=== PATIENT | male | born 1955 | race Caucasian/White ===

== ENCOUNTER 2019-06-08 17:14 | Inpatient (IN) | payer OTHER ==
[~2019-06-08 17:14] MED LIST: ETOMIDATE 20 MG INJ; SUCCINYLCHOLINE CHLORIDE 100 MG/5 ML SYG IV
[2019-06-08 17:35] LABS: ADD MAN DIFF? NO
[2019-06-08] MEDS: NALOXONE 2 MG SYG IV (17:37)
[2019-06-08] MEDS: ETOMIDATE 20 MG INJ IV (17:37)
[2019-06-08] MEDS: SUCCINYLCHOLINE CHLORIDE 100 MG/5 ML SYG IV (17:37)
[2019-06-08 17:39] LABS: BASOPHILS % 0.5 % (0.0-2.0); EOSINOPHILS # 0.2 10^3/ul (0.0-0.5); EOSINOPHILS % 2.8 % (0.0-7.0); HEMATOCRIT 45.3 % (42.0-52.0); HEMOGLOBIN 13.9 g/dl (14.0-18.0); LYMPHOCYTES # 1.6 10^3/ul (0.8-2.9); LYMPHOCYTES % 26.9 % (15.0-51.0); MEAN CORPUSCULAR HEMOGLOBIN 25.1 pg (29.0-33.0); MEAN CORPUSCULAR HGB CONC 30.7 g/dl (32.0-37.0); MEAN CORPUSCULAR VOLUME 81.9 fl (82.0-101.0); MEAN PLATELET VOLUME 10.2 fl (7.4-10.4); MONOCYTE # 0.5 10^3/ul (0.3-0.9); MONOCYTES % 7.8 % (0.0-11.0); NEUTROPHIL # 3.7 10^3/ul (1.6-7.5); NEUTROPHILS % 61.7 % (39.0-77.0); PLATELET COUNT 168 10^3/UL (140-415); RED BLOOD COUNT 5.53 10^6/ul (4.70-6.10); RED CELL DISTRIBUTION WIDTH 16.4 % (11.5-14.5)
[2019-06-08 17:39] LABS: WHITE BLOOD COUNT 6.1 10^3/ul (4.8-10.8)
[2019-06-08] MEDS: LABETALOL HCL 20MG INJ IV (17:44)
[2019-06-08] MEDS: niCARdipine-NS 0.1MG/ML DRIP 200 ML IV (17:47)
[2019-06-08 17:53] LABS: HEMOGLOBIN A1C 5.4 % (0-5.9)
[2019-06-08 17:58] LABS: INR 0.93; PROTIME 12.6 Sec (11.9-14.9)
[2019-06-08 18:00] LABS: ACETAMINOPHEN < 10.0 ug/ml (10.0-30.0)
[2019-06-08 18:00] LABS: SALICYLATE < 1.0 mg/dl (5.0-30.0)
[2019-06-08 18:01] LABS: ALANINE AMINOTRANSFERASE 30 IU/L (13-69); ALBUMIN 4.3 g/dl (3.3-4.9); ALBUMIN/GLOBULIN RATIO 1.02; ALKALINE PHOSPHATASE 94 IU/L (42-121); ANION GAP 10 (5-13); ASPARTATE AMINO TRANSFERASE 42 IU/L (15-46); BILIRUBIN,INDIRECT 0.7 mg/dl (0-1.1); BILIRUBIN,TOTAL 0.7 mg/dl (0.2-1.3); BLOOD UREA NITROGEN 15 mg/dl (7-20); CALCIUM 9.6 mg/dl (8.4-10.2); CARBON DIOXIDE 26 mmol/L (21-31); CHLORIDE 105 mmol/L (97-110); CHOL/HDL RATIO 3.1 RATIO; CHOLESTEROL 146 mg/dl (100-200); CREATINE KINASE 372 IU/L (23-200); CREATININE 0.98 mg/dl (0.61-1.24); Estimated GFR > 60 mL/min (>60); GLUCOSE 159 mg/dl (70-220); HDL CHOLESTEROL 46 mg/dl (30-78); LDL CHOLESTEROL,CALCULATED 72 mg/dl; PARTIAL THROMBOPLASTIN TIME 25.2 Sec (23.0-35.0); POTASSIUM 3.4 mmol/L (3.5-5.1); SODIUM 141 mmol/L (135-144); TOTAL PROTEIN 8.5 g/dl (6.1-8.1); TRIGLYCERIDES 139 mg/dl (0-149)
[2019-06-08 18:03] LABS: ETHANOL < 10.0 mg/dl (0-0)
[2019-06-08 18:04] LABS: ADD UMIC YES; UR ASCORBIC ACID NEGATIVE (NEGATIVE); UR BILIRUBIN (Dip) NEGATIVE (NEGATIVE); UR BLOOD (Dip) 1+ mg/dL (NEGATIVE); UR CLARITY CLEAR (CLEAR); UR COLOR YELLOW (YELLOW); UR GLUCOSE (Dip) NEGATIVE (NEGATIVE); UR KETONES (Dip) NEGATIVE (NEGATIVE); UR LEUKOCYTE ESTERASE (Dip) NEGATIVE Leu/ul (NEGATIVE); UR MUCUS FEW /HPF (NONE SEEN); UR NITRITE (Dip) NEGATIVE (NEGATIVE); UR RBC 18 /HPF (0-5); UR TOTAL PROTEIN (Dip) 2+ mg/dl (NEGATIVE); UR UROBILINOGEN (Dip) NEGATIVE (NEGATIVE); UR WBC 1 /HPF (0-5)
[2019-06-08 18:11] LABS: CK INDEX 2.8; TROPONIN-I 0.039 ng/ml (0.000-0.120)
[2019-06-08 18:21] LABS: AMPHETAMINE/METHAMPHETAMINE Negative (NEGATIVE); BARBITURATES Negative (NEGATIVE); BENZODIAZEPINES Negative (NEGATIVE); CANNABINOIDS Negative (NEGATIVE); COCAINE Negative (NEGATIVE); OPIATES Negative (NEGATIVE)
[2019-06-08] MEDS: IOHEXOL 100 ML (18:29)
[2019-06-08] MEDS: SOD CHLORIDE 0.9% 100 ML (18:29)
[2019-06-08] MEDS ORDERED: GELATIN SIZE 100 SPONGE (18:50)
[2019-06-08] MEDS ORDERED: THROMBIN 5000 UNIT (RECOTHROM) VIAL (18:50)
[2019-06-08] MEDS ORDERED: LIDOCAINE 1%/EPI 30 ML INJ (18:51)
[2019-06-08] MEDS ORDERED: BACITRACIN/POLYMYXIN 28.35 GM OINT TOP (18:51)
[2019-06-08] MEDS ORDERED: EPHEDrine 25 MG/5 ML SYG (19:00)
[2019-06-08] MEDS: SOD CHLORIDE 0.9% 1,000 ML IV (19:13)
[2019-06-08 19:47] LABS: COLLAGEN/EPI 138 Secs. (51-198)
[2019-06-08] MEDS ORDERED: ROCURONIUM 50 MG INJ (19:50)
[2019-06-08] MEDS: GELATIN SIZE 100 SPONGE TOP (20:14)
[2019-06-08] MEDS: BACITRACIN 50000 UNITS INJ IRR (20:14)
[2019-06-08] MEDS: LIDOCAINE 1%/EPI (1:100,000) (MDV) 20 ML INJ (20:14)
[2019-06-08] MEDS: THROMBIN 5000 UNIT (RECOTHROM) VIAL (20:14)
[2019-06-08] MEDS ORDERED: HYDROGEN PEROXIDE 118 ML (21:41)
[2019-06-08] MEDS ORDERED: ALBUTEROL HFA 8 GM INHALER INH (23:00)
[2019-06-08] MEDS ORDERED: IPRATROPIUM (HFA) 12.9 GM INHALER INH (23:00)
[2019-06-08] MEDS ORDERED: PROPOFOL 100 ML IV (23:00)
[2019-06-08] MEDS ORDERED: LABETALOL HCL 20MG INJ (23:48)
[2019-06-08] MEDS ORDERED: FENTAnyl 50 MCG/ML VIAL (23:48)
[2019-06-08] MEDS ORDERED: CEFAZOLIN 1 GM INJ (23:49)
[2019-06-09] MEDS ORDERED: hydrALAzine 20 MG INJ IV (00:30)
[2019-06-09] MEDS ORDERED: morphine 10 MG INJ IV (00:30)
[2019-06-09] MEDS ORDERED: LABETALOL HCL 20MG INJ IV (00:30)
[2019-06-09] MEDS ORDERED: DIPHENHYDRAMINE 50 MG INJ IV ×2 (00:30)
[2019-06-09] MEDS ORDERED: EPHEDrine 25 MG/5 ML SYG IV (00:30)
[2019-06-09] MEDS ORDERED: MEPERIDINE 25 MG INJ IV (00:30)
[2019-06-09] MEDS ORDERED: morphine 2 MG INJ IV ×2 (00:30)
[2019-06-09] MEDS ORDERED: MIDAZOLAM 1 MG/ML 2 ML INJ IV (00:30)
[2019-06-09] MEDS: niCARdipine-NS 0.1MG/ML DRIP 200 ML IV ×9 (00:37→23:25)
[2019-06-09] MEDS: CEFAZOLIN 2 GM/50 ML (PMX) 50 ML IVPB ×3 (01:48→16:23)
[2019-06-09 02:29] LABS: AADO2 Arterial 139.3 mmHg (7.0-24.0); Arterial Base Excess -0.2 mmol/L (-3.0-3); Arterial Blood Gas Oxygen Sat 99.1 mmHG (95.0-98.0); Arterial COHb 0.6 % (0.0-3.0); Arterial Fraction of Oxyhgb 98.3 % (93.0-99.0); Arterial MetHb 0.2 % (0.0-1.5); Arterial pCO2 43.3 mmhg (35-45); MODE VENT - AC; Site A-Line
[2019-06-09 05:08] LABS: ADD MAN DIFF? NO
[2019-06-09] MEDS: ONDANSETRON 4 MG INJ IV (05:15)
[2019-06-09 05:25] LABS: BASOPHILS % 0.2 % (0.0-2.0); HEMATOCRIT 39.9 % (42.0-52.0); HEMOGLOBIN 12.2 g/dl (14.0-18.0); LYMPHOCYTES # 0.9 10^3/ul (0.8-2.9); LYMPHOCYTES % 8.9 % (15.0-51.0); MEAN CORPUSCULAR HEMOGLOBIN 25.4 pg (29.0-33.0); MEAN CORPUSCULAR HGB CONC 30.6 g/dl (32.0-37.0); MEAN CORPUSCULAR VOLUME 83.1 fl (82.0-101.0); MEAN PLATELET VOLUME 10.5 fl (7.4-10.4); MONOCYTE # 0.6 10^3/ul (0.3-0.9); MONOCYTES % 6.2 % (0.0-11.0); NEUTROPHIL # 8.1 10^3/ul (1.6-7.5); NEUTROPHILS % 84.4 % (39.0-77.0); PLATELET COUNT 159 10^3/UL (140-415); RED CELL DISTRIBUTION WIDTH 16.8 % (11.5-14.5)
[2019-06-09 05:25] LABS: WHITE BLOOD COUNT 9.6 10^3/ul (4.8-10.8)
[2019-06-09 05:43] LABS: PHOSPHORUS 4.2 mg/dl (2.5-4.9)
[2019-06-09 05:50] LABS: MAGNESIUM 1.8 mg/dl (1.7-2.5)
[2019-06-09 06:01] LABS: ANION GAP 10 (5-13); BLOOD UREA NITROGEN 16 mg/dl (7-20); CALCIUM 8.9 mg/dl (8.4-10.2); CARBON DIOXIDE 28 mmol/L (21-31); CHLORIDE 104 mmol/L (97-110); CREATININE 1.01 mg/dl (0.61-1.24); Estimated GFR > 60 mL/min (>60); GLUCOSE 184 mg/dl (70-220); POTASSIUM 3.6 mmol/L (3.5-5.1); SODIUM 142 mmol/L (135-144)
[2019-06-09] MEDS: PANTOPRAZOLE 40 MG INJ IV (06:22)
[2019-06-09 09:13] LABS: AADO2 Arterial 95.2 mmHg (7.0-24.0); Arterial Base Excess 1.3 mmol/L (-3.0-3); Arterial HCO3 25.2 mmol/L (22.0-26.0); MODE VENT - AC; Site A-Line
[2019-06-09] MEDS: LEVETIRACETAM 500 MG (PMX) 100 ML IVPB ×2 (13:25→20:50)
[2019-06-09] MEDS: morphine 2 MG INJ IV (13:26)
[2019-06-09] MEDS: SOD CHLORIDE 0.9% 1,000 ML IV (16:23)
[2019-06-09] MEDS ORDERED: LEVETIRACETAM IV 500 MG in DEXTROSE 5% 100 ML IVPB (21:00)
[2019-06-10] MEDS: niCARdipine-NS 0.1MG/ML DRIP 200 ML IV (01:36)
[2019-06-10] MEDS: niCARdipine 50 MG in SOD CHLORIDE 0.9% 480 ML IV ×4 (03:47→23:08)
[2019-06-10] MEDS: ACETAMINOPHEN 650 MG SUPP PR ×2 (04:20→20:34)
[2019-06-10 05:21] LABS: ADD MAN DIFF? NO
[2019-06-10 05:25] LABS: WHITE BLOOD COUNT 9.8 10^3/ul (4.8-10.8)
[2019-06-10 05:25] LABS: BASOPHILS % 0.1 % (0.0-2.0); HEMATOCRIT 33.7 % (42.0-52.0); HEMOGLOBIN 10.4 g/dl (14.0-18.0); LYMPHOCYTES # 0.8 10^3/ul (0.8-2.9); LYMPHOCYTES % 8.3 % (15.0-51.0); MEAN CORPUSCULAR HEMOGLOBIN 25.3 pg (29.0-33.0); MEAN CORPUSCULAR HGB CONC 30.9 g/dl (32.0-37.0); MEAN PLATELET VOLUME 10.3 fl (7.4-10.4); MONOCYTE # 0.8 10^3/ul (0.3-0.9); MONOCYTES % 7.8 % (0.0-11.0); NEUTROPHIL # 8.2 10^3/ul (1.6-7.5); NEUTROPHILS % 83.3 % (39.0-77.0); PLATELET COUNT 141 10^3/UL (140-415); RED BLOOD COUNT 4.11 10^6/ul (4.70-6.10); RED CELL DISTRIBUTION WIDTH 16.3 % (11.5-14.5)
[2019-06-10] MEDS: PANTOPRAZOLE 40 MG INJ IV (05:31)
[2019-06-10] MEDS: SOD CHLORIDE 0.9% 1,000 ML IV ×2 (05:31→19:10)
[2019-06-10 05:52] LABS: ANION GAP 8 (5-13); BLOOD UREA NITROGEN 21 mg/dl (7-20); CALCIUM 8.2 mg/dl (8.4-10.2); CARBON DIOXIDE 25 mmol/L (21-31); CHLORIDE 105 mmol/L (97-110); CREATININE 1.01 mg/dl (0.61-1.24); Estimated GFR > 60 mL/min (>60); GLUCOSE 121 mg/dl (70-220); MAGNESIUM 1.7 mg/dl (1.7-2.5); POTASSIUM 3.1 mmol/L (3.5-5.1); SODIUM 138 mmol/L (135-144)
[2019-06-10] MEDS: LEVETIRACETAM 500 MG (PMX) 100 ML IVPB ×2 (08:12→20:34)
[2019-06-10] MEDS: CEFAZOLIN 2 GM/50 ML (PMX) 50 ML IVPB ×4 (08:24→23:36)
[2019-06-10] MEDS: POTASSIUM CHLORIDE 100 ML IVPB ×2 (14:16→16:27)
[2019-06-11] MEDS: SOD CHLORIDE 0.9% 1,000 ML IV (02:11)
[2019-06-11] MEDS: niCARdipine 50 MG in SOD CHLORIDE 0.9% 480 ML IV ×4 (03:58→21:42)
[2019-06-11] MEDS: PANTOPRAZOLE 40 MG INJ IV (05:08)
[2019-06-11 05:21] LABS: ADD MAN DIFF? NO
[2019-06-11 05:24] LABS: WHITE BLOOD COUNT 8.3 10^3/ul (4.8-10.8)
[2019-06-11 05:24] LABS: BASOPHILS % 0.1 % (0.0-2.0); HEMATOCRIT 31.1 % (42.0-52.0); HEMOGLOBIN 9.5 g/dl (14.0-18.0); LYMPHOCYTES # 0.7 10^3/ul (0.8-2.9); LYMPHOCYTES % 8.4 % (15.0-51.0); MEAN CORPUSCULAR HEMOGLOBIN 25.2 pg (29.0-33.0); MEAN CORPUSCULAR HGB CONC 30.5 g/dl (32.0-37.0); MEAN CORPUSCULAR VOLUME 82.5 fl (82.0-101.0); MEAN PLATELET VOLUME 10.8 fl (7.4-10.4); MONOCYTE # 0.6 10^3/ul (0.3-0.9); MONOCYTES % 7.6 % (0.0-11.0); NEUTROPHILS % 83.5 % (39.0-77.0); PLATELET COUNT 140 10^3/UL (140-415); RED BLOOD COUNT 3.77 10^6/ul (4.70-6.10); RED CELL DISTRIBUTION WIDTH 16.4 % (11.5-14.5)
[2019-06-11 05:51] LABS: ANION GAP 7 (5-13); BLOOD UREA NITROGEN 18 mg/dl (7-20); CARBON DIOXIDE 22 mmol/L (21-31); CHLORIDE 111 mmol/L (97-110); CREATININE 0.79 mg/dl (0.61-1.24); Estimated GFR > 60 mL/min (>60); GLUCOSE 123 mg/dl (70-220); MAGNESIUM 1.9 mg/dl (1.7-2.5); POTASSIUM 3.4 mmol/L (3.5-5.1); SODIUM 140 mmol/L (135-144)
[2019-06-11] MEDS: POTASSIUM CHLORIDE 100 ML IVPB (06:36)
[2019-06-11] MEDS: CEFAZOLIN 2 GM/50 ML (PMX) 50 ML IVPB ×2 (08:49→15:51)
[2019-06-11] MEDS: LEVETIRACETAM 500 MG (PMX) 100 ML IVPB ×2 (08:49→20:29)
[2019-06-11] MEDS ORDERED: niCARdipine-NS 0.1MG/ML DRIP 200 ML (10:08)
[2019-06-11] MEDS ORDERED: LORAZEPAM 2 MG INJ (22:52)
[2019-06-11] MEDS: LORAZEPAM 2 MG INJ IV (22:55)
[2019-06-11] MEDS: LEVETIRACETAM 1000 MG (PMX) 100 ML IVPB (23:13)
[2019-06-12] MEDS: CEFAZOLIN 2 GM/50 ML (PMX) 50 ML IVPB (00:22)
[2019-06-12] MEDS: niCARdipine 50 MG in SOD CHLORIDE 0.9% 480 ML IV ×4 (02:34→18:59)
[2019-06-12] MEDS: ACETAMINOPHEN 650MG/20.3ML CUP NGT (05:02)
[2019-06-12 05:18] LABS: ADD MAN DIFF? NO
[2019-06-12 05:20] LABS: BASOPHILS % 0.2 % (0.0-2.0); HEMATOCRIT 33.1 % (42.0-52.0); HEMOGLOBIN 10.2 g/dl (14.0-18.0); LYMPHOCYTES # 0.7 10^3/ul (0.8-2.9); LYMPHOCYTES % 10.7 % (15.0-51.0); MEAN CORPUSCULAR HEMOGLOBIN 25.9 pg (29.0-33.0); MEAN CORPUSCULAR HGB CONC 30.8 g/dl (32.0-37.0); MEAN PLATELET VOLUME 10.1 fl (7.4-10.4); MONOCYTE # 0.5 10^3/ul (0.3-0.9); NEUTROPHIL # 5.3 10^3/ul (1.6-7.5); NEUTROPHILS % 80.8 % (39.0-77.0); PLATELET COUNT 163 10^3/UL (140-415); RED BLOOD COUNT 3.94 10^6/ul (4.70-6.10); RED CELL DISTRIBUTION WIDTH 16.5 % (11.5-14.5)
[2019-06-12 05:20] LABS: WHITE BLOOD COUNT 6.6 10^3/ul (4.8-10.8)
[2019-06-12] MEDS: LANSOPRAZOLE 30 MG CAP PO (05:22)
[2019-06-12] MEDS ORDERED: VANCOMYCIN IV PER PHARMACY XX (05:30)
[2019-06-12 05:49] LABS: ANION GAP 4 (5-13); BLOOD UREA NITROGEN 19 mg/dl (7-20); CALCIUM 8.4 mg/dl (8.4-10.2); CARBON DIOXIDE 26 mmol/L (21-31); CHLORIDE 114 mmol/L (97-110); CREATININE 0.82 mg/dl (0.61-1.24); Estimated GFR > 60 mL/min (>60); GLUCOSE 129 mg/dl (70-220); MAGNESIUM 2.1 mg/dl (1.7-2.5); PHOSPHORUS 2.3 mg/dl (2.5-4.9); POTASSIUM 3.6 mmol/L (3.5-5.1); SODIUM 144 mmol/L (135-144)
[2019-06-12] MEDS: PIPER-TAZO 3.375 GM IV (PMX) 100 ML IVPB ×4 (06:24→23:31)
[2019-06-12] MEDS: VANCOMYCIN 1.5 GM/NS 250 ML 250 ML IVPB (06:51)
[2019-06-12 07:26] LABS: AADO2 Arterial 126.3 mmHg (7.0-24.0); Allen Test ACCEPTAB; Arterial Base Excess -0.9 mmol/L (-3.0-3); Arterial COHb 0.1 % (0.0-3.0); Arterial Fraction of Oxyhgb 94.7 % (93.0-99.0); Arterial MetHb 0.2 % (0.0-1.5); Arterial pCO2 40.3 mmhg (35-45); MODE VENT - AC; Site Left Radial
[2019-06-12] MEDS: LEVETIRACETAM 1000 MG (PMX) 100 ML IVPB ×2 (08:43→20:45)
[2019-06-12] MEDS: POTASSIUM PHOSPHATE 15 MM in SOD CHLORIDE 0.9% 250 ML IVPB (11:48)
[2019-06-12] MEDS: METOPROLOL 25 MG TAB PO ×2 (11:49→21:22)
[2019-06-12] MEDS: VANCOMYCIN 1 GM 250 ML IVPB (18:43)
[2019-06-12] MEDS: LORAZEPAM 2 MG INJ IV ×2 (18:47→21:22)
[2019-06-13 05:00] LABS: ADD MAN DIFF? NO
[2019-06-13 05:02] LABS: BASOPHILS % 0.4 % (0.0-2.0); EOSINOPHILS # 0.1 10^3/ul (0.0-0.5); EOSINOPHILS % 0.7 % (0.0-7.0); HEMOGLOBIN 10.3 g/dl (14.0-18.0); LYMPHOCYTES # 0.7 10^3/ul (0.8-2.9); LYMPHOCYTES % 9.3 % (15.0-51.0); MEAN CORPUSCULAR HEMOGLOBIN 25.2 pg (29.0-33.0); MEAN CORPUSCULAR HGB CONC 30.3 g/dl (32.0-37.0); MEAN CORPUSCULAR VOLUME 83.3 fl (82.0-101.0); MEAN PLATELET VOLUME 10.5 fl (7.4-10.4); MONOCYTE # 0.5 10^3/ul (0.3-0.9); NEUTROPHIL # 5.7 10^3/ul (1.6-7.5); NEUTROPHILS % 82.3 % (39.0-77.0); PLATELET COUNT 189 10^3/UL (140-415); RED BLOOD COUNT 4.08 10^6/ul (4.70-6.10); RED CELL DISTRIBUTION WIDTH 16.4 % (11.5-14.5)
[2019-06-13] MEDS: PIPER-TAZO 3.375 GM IV (PMX) 100 ML IVPB ×3 (05:05→17:21)
[2019-06-13 05:25] LABS: ALANINE AMINOTRANSFERASE 33 IU/L (13-69); ALBUMIN/GLOBULIN RATIO 0.88; ALKALINE PHOSPHATASE 80 IU/L (42-121); ANION GAP 5 (5-13); ASPARTATE AMINO TRANSFERASE 42 IU/L (15-46); BILIRUBIN,INDIRECT 0.5 mg/dl (0-1.1); BILIRUBIN,TOTAL 0.5 mg/dl (0.2-1.3); BLOOD UREA NITROGEN 18 mg/dl (7-20); CALCIUM 8.7 mg/dl (8.4-10.2); CARBON DIOXIDE 28 mmol/L (21-31); CHLORIDE 112 mmol/L (97-110); CREATININE 0.81 mg/dl (0.61-1.24); Estimated GFR > 60 mL/min (>60); GLUCOSE 121 mg/dl (70-220); PHOSPHORUS 2.8 mg/dl (2.5-4.9); POTASSIUM 3.4 mmol/L (3.5-5.1); SODIUM 145 mmol/L (135-144); TOTAL PROTEIN 6.4 g/dl (6.1-8.1)
[2019-06-13] MEDS: LANSOPRAZOLE 30 MG CAP PO (05:54)
[2019-06-13] MEDS: POTASSIUM CHLORIDE 20 MEQ POWDER FOR ORAL SOLN GTB (05:54)
[2019-06-13] MEDS: VANCOMYCIN 1 GM 250 ML IVPB ×2 (05:54→18:33)
[2019-06-13] MEDS: niCARdipine 50 MG in SOD CHLORIDE 0.9% 480 ML IV ×3 (06:25→20:28)
[2019-06-13] MEDS: LEVETIRACETAM 1000 MG (PMX) 100 ML IVPB ×2 (08:31→20:35)
[2019-06-13] MEDS: METOPROLOL 25 MG TAB PO (08:32)
[2019-06-13 16:45] LABS: ANION GAP 4 (5-13); BLOOD UREA NITROGEN 18 mg/dl (7-20); CALCIUM 8.8 mg/dl (8.4-10.2); CARBON DIOXIDE 28 mmol/L (21-31); CHLORIDE 109 mmol/L (97-110); CREATININE 0.83 mg/dl (0.61-1.24); Estimated GFR > 60 mL/min (>60); GLUCOSE 133 mg/dl (70-220); POTASSIUM 3.4 mmol/L (3.5-5.1); SODIUM 141 mmol/L (135-144)
[2019-06-13] MEDS: POTASSIUM CHLORIDE 100 ML IVPB ×2 (17:09→19:20)
[2019-06-13 17:49] LABS: VANCOMYCIN,TROUGH 10.2 ug/ml (10.0-20.0)
[2019-06-13] MEDS: METOPROLOL 50 MG TAB PO (20:35)
[2019-06-13] MEDS ORDERED: METOPROLOL 100 MG TAB NGT (21:00)
[2019-06-14] MEDS: PIPER-TAZO 3.375 GM IV (PMX) 100 ML IVPB ×4 (00:43→15:35)
[2019-06-14] MEDS: niCARdipine 50 MG in SOD CHLORIDE 0.9% 480 ML IV ×5 (00:59→18:22)
[2019-06-14] MEDS: hydrALAzine 20 MG INJ IV (01:32)
[2019-06-14] MEDS: ACETAMINOPHEN 650MG/20.3ML CUP NGT ×2 (04:11→15:38)
[2019-06-14 04:51] LABS: ADD MAN DIFF? NO
[2019-06-14 04:55] LABS: WHITE BLOOD COUNT 7.8 10^3/ul (4.8-10.8)
[2019-06-14 04:55] LABS: BASOPHILS % 0.4 % (0.0-2.0); EOSINOPHILS # 0.1 10^3/ul (0.0-0.5); EOSINOPHILS % 1.2 % (0.0-7.0); HEMATOCRIT 33.9 % (42.0-52.0); HEMOGLOBIN 10.4 g/dl (14.0-18.0); LYMPHOCYTES # 0.6 10^3/ul (0.8-2.9); LYMPHOCYTES % 7.7 % (15.0-51.0); MEAN CORPUSCULAR HEMOGLOBIN 25.4 pg (29.0-33.0); MEAN CORPUSCULAR HGB CONC 30.7 g/dl (32.0-37.0); MEAN CORPUSCULAR VOLUME 82.7 fl (82.0-101.0); MEAN PLATELET VOLUME 9.8 fl (7.4-10.4); MONOCYTE # 0.5 10^3/ul (0.3-0.9); MONOCYTES % 6.6 % (0.0-11.0); NEUTROPHIL # 6.5 10^3/ul (1.6-7.5); NEUTROPHILS % 83.8 % (39.0-77.0); PLATELET COUNT 216 10^3/UL (140-415); RED CELL DISTRIBUTION WIDTH 16.4 % (11.5-14.5)
[2019-06-14 05:14] LABS: ANION GAP 6 (5-13); BLOOD UREA NITROGEN 19 mg/dl (7-20); CALCIUM 8.7 mg/dl (8.4-10.2); CARBON DIOXIDE 27 mmol/L (21-31); CHLORIDE 111 mmol/L (97-110); CREATININE 0.82 mg/dl (0.61-1.24); Estimated GFR > 60 mL/min (>60); GLUCOSE 154 mg/dl (70-220); POTASSIUM 3.8 mmol/L (3.5-5.1); SODIUM 144 mmol/L (135-144)
[2019-06-14] MEDS: VANCOMYCIN 1.25 GM/NS 250 ML 250 ML IVPB ×2 (05:15→18:07)
[2019-06-14] MEDS: LANSOPRAZOLE 30 MG CAP PO (05:15)
[2019-06-14] MEDS: LEVETIRACETAM 1000 MG (PMX) 100 ML IVPB ×2 (08:19→21:03)
[2019-06-14] MEDS: METOPROLOL 50 MG TAB PO ×2 (08:20→21:03)
[2019-06-14 09:52] LABS: B-TYPE NATRIURETIC PEPTIDE 814 PG/ML (0-125)
[2019-06-15] MEDS: PIPER-TAZO 3.375 GM IV (PMX) 100 ML IVPB ×5 (00:23→23:20)
[2019-06-15] MEDS: niCARdipine 50 MG in SOD CHLORIDE 0.9% 480 ML IV ×6 (01:55→19:59)
[2019-06-15] MEDS: LANSOPRAZOLE 30 MG CAP PO (05:19)
[2019-06-15] MEDS: hydrALAzine 20 MG INJ IV ×2 (05:19→12:44)
[2019-06-15 05:28] LABS: ADD MAN DIFF? NO
[2019-06-15 05:33] LABS: WHITE BLOOD COUNT 7.5 10^3/ul (4.8-10.8)
[2019-06-15 05:33] LABS: ABNORMAL IP MESSAGE 1; BASOPHILS % 0.1 % (0.0-2.0); EOSINOPHILS % 0.4 % (0.0-7.0); HEMATOCRIT 37.1 % (42.0-52.0); HEMOGLOBIN 11.3 g/dl (14.0-18.0); LYMPHOCYTES # 0.6 10^3/ul (0.8-2.9); LYMPHOCYTES % 7.4 % (15.0-51.0); MEAN CORPUSCULAR HEMOGLOBIN 25.3 pg (29.0-33.0); MEAN CORPUSCULAR HGB CONC 30.5 g/dl (32.0-37.0); MEAN CORPUSCULAR VOLUME 83.2 fl (82.0-101.0); MEAN PLATELET VOLUME 10.7 fl (7.4-10.4); MONOCYTE # 0.4 10^3/ul (0.3-0.9); MONOCYTES % 5.6 % (0.0-11.0); NEUTROPHIL # 6.5 10^3/ul (1.6-7.5); NEUTROPHILS % 86.1 % (39.0-77.0); PLATELET COUNT 250 10^3/UL (140-415); POSITIVE DIFF @See below; RED BLOOD COUNT 4.46 10^6/ul (4.70-6.10); RED CELL DISTRIBUTION WIDTH 16.1 % (11.5-14.5)
[2019-06-15 06:17] LABS: ANION GAP 9 (5-13); BLOOD UREA NITROGEN 22 mg/dl (7-20); CALCIUM 8.9 mg/dl (8.4-10.2); CARBON DIOXIDE 24 mmol/L (21-31); CHLORIDE 111 mmol/L (97-110); CREATININE 0.63 mg/dl (0.61-1.24); Estimated GFR > 60 mL/min (>60); GLUCOSE 142 mg/dl (70-220); POTASSIUM 4.2 mmol/L (3.5-5.1); SODIUM 144 mmol/L (135-144)
[2019-06-15] MEDS: METOPROLOL 50 MG TAB PO ×2 (09:02→20:34)
[2019-06-15] MEDS: LEVETIRACETAM 1000 MG (PMX) 100 ML IVPB ×2 (09:02→20:35)
[2019-06-15] MEDS ORDERED: ARTIFICIAL TEARS 15 ML OPH BOTH EYES (10:00)
[2019-06-15] MEDS: ARTIFICIAL TEARS 15 ML OPH BOTH EYES ×3 (12:44→20:35)
[2019-06-15] MEDS: HYDROCHLOROTHIAZIDE 25 MG TAB PO (16:11)
[2019-06-15] MEDS: POLYETHYLENE GLYCOL 17 GM PACKET NGT (18:11)
[2019-06-15] MEDS: NIFEdipine (XL) 30 MG TAB PO (20:35)
[2019-06-15] MEDS: LORAZEPAM 2 MG INJ IV (20:59)
[2019-06-15 21:56] LABS: ADD MAN DIFF? NO
[2019-06-15 22:04] LABS: WHITE BLOOD COUNT 8.2 10^3/ul (4.8-10.8)
[2019-06-15 22:04] LABS: ABNORMAL IP MESSAGE 1; BASOPHILS % 0.2 % (0.0-2.0); EOSINOPHILS % 0.5 % (0.0-7.0); HEMATOCRIT 31.6 % (42.0-52.0); HEMOGLOBIN 9.8 g/dl (14.0-18.0); LYMPHOCYTES # 0.6 10^3/ul (0.8-2.9); LYMPHOCYTES % 7.1 % (15.0-51.0); MEAN CORPUSCULAR HEMOGLOBIN 25.5 pg (29.0-33.0); MEAN CORPUSCULAR VOLUME 82.3 fl (82.0-101.0); MEAN PLATELET VOLUME 10.4 fl (7.4-10.4); MONOCYTE # 0.6 10^3/ul (0.3-0.9); MONOCYTES % 6.9 % (0.0-11.0); NEUTROPHIL # 6.9 10^3/ul (1.6-7.5); NEUTROPHILS % 84.9 % (39.0-77.0); PLATELET COUNT 247 10^3/UL (140-415); POSITIVE DIFF @See below; RED BLOOD COUNT 3.84 10^6/ul (4.70-6.10); RED CELL DISTRIBUTION WIDTH 16.2 % (11.5-14.5)
[2019-06-15 22:24] LABS: ALANINE AMINOTRANSFERASE 42 IU/L (13-69); ALBUMIN 2.8 g/dl (3.3-4.9); ALBUMIN/GLOBULIN RATIO 0.82; ALKALINE PHOSPHATASE 71 IU/L (42-121); ANION GAP 7 (5-13); ASPARTATE AMINO TRANSFERASE 36 IU/L (15-46); BILIRUBIN,INDIRECT 0.4 mg/dl (0-1.1); BILIRUBIN,TOTAL 0.4 mg/dl (0.2-1.3); BLOOD UREA NITROGEN 25 mg/dl (7-20); CALCIUM 8.5 mg/dl (8.4-10.2); CARBON DIOXIDE 26 mmol/L (21-31); CHLORIDE 109 mmol/L (97-110); Estimated GFR > 60 mL/min (>60); GLUCOSE 144 mg/dl (70-220); MAGNESIUM 2.1 mg/dl (1.7-2.5); PHOSPHORUS 3.2 mg/dl (2.5-4.9); POTASSIUM 3.5 mmol/L (3.5-5.1); SODIUM 142 mmol/L (135-144); TOTAL PROTEIN 6.2 g/dl (6.1-8.1)
[2019-06-16] MEDS: CHLORPROMAZINE 25 MG TAB PO ×2 (00:54→09:31)
[2019-06-16 04:15] LABS: ADD MAN DIFF? NO
[2019-06-16 04:17] LABS: BASOPHILS % 0.3 % (0.0-2.0); EOSINOPHILS # 0.1 10^3/ul (0.0-0.5); EOSINOPHILS % 0.8 % (0.0-7.0); HEMATOCRIT 31.8 % (42.0-52.0); LYMPHOCYTES # 0.7 10^3/ul (0.8-2.9); LYMPHOCYTES % 9.9 % (15.0-51.0); MEAN CORPUSCULAR HEMOGLOBIN 25.7 pg (29.0-33.0); MEAN CORPUSCULAR HGB CONC 31.4 g/dl (32.0-37.0); MEAN CORPUSCULAR VOLUME 81.7 fl (82.0-101.0); MEAN PLATELET VOLUME 9.9 fl (7.4-10.4); MONOCYTE # 0.5 10^3/ul (0.3-0.9); MONOCYTES % 7.4 % (0.0-11.0); NEUTROPHIL # 5.8 10^3/ul (1.6-7.5); NEUTROPHILS % 81.2 % (39.0-77.0); PLATELET COUNT 236 10^3/UL (140-415); RED BLOOD COUNT 3.89 10^6/ul (4.70-6.10); RED CELL DISTRIBUTION WIDTH 16.2 % (11.5-14.5)
[2019-06-16 04:17] LABS: WHITE BLOOD COUNT 7.2 10^3/ul (4.8-10.8)
[2019-06-16 04:39] LABS: PHOSPHORUS 3.6 mg/dl (2.5-4.9)
[2019-06-16 04:39] LABS: MAGNESIUM 2.1 mg/dl (1.7-2.5)
[2019-06-16 04:41] LABS: ANION GAP 5 (5-13); BLOOD UREA NITROGEN 27 mg/dl (7-20); CALCIUM 8.6 mg/dl (8.4-10.2); CARBON DIOXIDE 27 mmol/L (21-31); CHLORIDE 108 mmol/L (97-110); CREATININE 0.83 mg/dl (0.61-1.24); Estimated GFR > 60 mL/min (>60); GLUCOSE 136 mg/dl (70-220); POTASSIUM 3.5 mmol/L (3.5-5.1); SODIUM 140 mmol/L (135-144)
[2019-06-16] MEDS: PIPER-TAZO 3.375 GM IV (PMX) 100 ML IVPB ×4 (05:23→23:25)
[2019-06-16] MEDS: HYDROCHLOROTHIAZIDE 25 MG TAB PO (05:24)
[2019-06-16] MEDS: LANSOPRAZOLE 30 MG CAP PO (05:24)
[2019-06-16] MEDS: POLYETHYLENE GLYCOL 17 GM PACKET NGT (09:18)
[2019-06-16] MEDS: ARTIFICIAL TEARS 15 ML OPH BOTH EYES ×4 (09:18→21:16)
[2019-06-16] MEDS: NIFEdipine (XL) 30 MG TAB PO ×2 (09:18→21:15)
[2019-06-16] MEDS: LEVETIRACETAM 1000 MG (PMX) 100 ML IVPB ×2 (09:18→21:15)
[2019-06-16] MEDS: METOPROLOL 50 MG TAB PO ×2 (09:18→21:15)
[2019-06-17] MEDS: METOCLOPRAMIDE 10 MG INJ IV (05:09)
[2019-06-17] MEDS: LANSOPRAZOLE 30 MG CAP PO (05:09)
[2019-06-17] MEDS: PIPER-TAZO 3.375 GM IV (PMX) 100 ML IVPB ×3 (05:09→17:52)
[2019-06-17] MEDS: HYDROCHLOROTHIAZIDE 25 MG TAB PO (05:12)
[2019-06-17 05:16] LABS: ADD MAN DIFF? NO
[2019-06-17 05:26] LABS: WHITE BLOOD COUNT 8.9 10^3/ul (4.8-10.8)
[2019-06-17 05:26] LABS: BASOPHILS % 0.2 % (0.0-2.0); EOSINOPHILS # 0.1 10^3/ul (0.0-0.5); EOSINOPHILS % 1.1 % (0.0-7.0); HEMATOCRIT 34.7 % (42.0-52.0); HEMOGLOBIN 10.9 g/dl (14.0-18.0); LYMPHOCYTES # 0.8 10^3/ul (0.8-2.9); LYMPHOCYTES % 9.1 % (15.0-51.0); MEAN CORPUSCULAR HEMOGLOBIN 25.2 pg (29.0-33.0); MEAN CORPUSCULAR HGB CONC 31.4 g/dl (32.0-37.0); MEAN CORPUSCULAR VOLUME 80.1 fl (82.0-101.0); MONOCYTE # 0.7 10^3/ul (0.3-0.9); MONOCYTES % 7.7 % (0.0-11.0); NEUTROPHIL # 7.3 10^3/ul (1.6-7.5); NEUTROPHILS % 81.5 % (39.0-77.0); PLATELET COUNT 306 10^3/UL (140-415); RED BLOOD COUNT 4.33 10^6/ul (4.70-6.10); RED CELL DISTRIBUTION WIDTH 15.9 % (11.5-14.5)
[2019-06-17 06:05] LABS: ANION GAP 8 (5-13); BLOOD UREA NITROGEN 27 mg/dl (7-20); CALCIUM 8.9 mg/dl (8.4-10.2); CARBON DIOXIDE 26 mmol/L (21-31); CHLORIDE 105 mmol/L (97-110); CREATININE 0.83 mg/dl (0.61-1.24); Estimated GFR > 60 mL/min (>60); GLUCOSE 113 mg/dl (70-220); POTASSIUM 3.2 mmol/L (3.5-5.1); SODIUM 139 mmol/L (135-144)
[2019-06-17] MEDS: niCARdipine 50 MG in SOD CHLORIDE 0.9% 480 ML IV ×2 (07:03→17:52)
[2019-06-17] MEDS: NIFEdipine (XL) 30 MG TAB PO ×2 (10:37→21:00)
[2019-06-17] MEDS: METOPROLOL 50 MG TAB PO (10:37)
[2019-06-17] MEDS: ARTIFICIAL TEARS 15 ML OPH BOTH EYES ×4 (10:37→21:34)
[2019-06-17] MEDS: POLYETHYLENE GLYCOL 17 GM PACKET NGT (10:38)
[2019-06-17] MEDS: LEVETIRACETAM 1000 MG (PMX) 100 ML IVPB ×2 (10:48→21:34)
[2019-06-17] MEDS: POTASSIUM CHLORIDE 100 ML IVPB (13:45)
[2019-06-17] MEDS: METOPROLOL 50 MG TAB NGT (21:35)
[2019-06-18] MEDS: PIPER-TAZO 3.375 GM IV (PMX) 100 ML IVPB ×4 (00:51→17:00)
[2019-06-18] MEDS: niCARdipine 50 MG in SOD CHLORIDE 0.9% 480 ML IV ×3 (01:48→11:24)
[2019-06-18 05:14] LABS: AADO2 Arterial 84.7 mmHg (7.0-24.0); Allen Test ACCEPTAB; Arterial Base Excess 1.9 mmol/L (-3.0-3); Arterial Blood Gas Oxygen Sat 97.5 mmHG (95.0-98.0); Arterial COHb 0.5 % (0.0-3.0); Arterial Fraction of Oxyhgb 96.8 % (93.0-99.0); Arterial HCO3 24.3 mmol/L (22.0-26.0); Arterial MetHb 0.2 % (0.0-1.5); Arterial pCO2 31.1 mmhg (35-45); MODE VENT - AC; Site Right Radial
[2019-06-18] MEDS: HYDROCHLOROTHIAZIDE 25 MG TAB NGT (05:34)
[2019-06-18] MEDS: LANSOPRAZOLE 30 MG CAP NGT (05:34)
[2019-06-18 05:36] LABS: ADD MAN DIFF? NO
[2019-06-18 05:52] LABS: BASOPHILS % 0.2 % (0.0-2.0); EOSINOPHILS # 0.1 10^3/ul (0.0-0.5); EOSINOPHILS % 0.5 % (0.0-7.0); HEMATOCRIT 34.1 % (42.0-52.0); HEMOGLOBIN 10.8 g/dl (14.0-18.0); LYMPHOCYTES # 0.7 10^3/ul (0.8-2.9); LYMPHOCYTES % 6.5 % (15.0-51.0); MEAN CORPUSCULAR HEMOGLOBIN 25.6 pg (29.0-33.0); MEAN CORPUSCULAR HGB CONC 31.7 g/dl (32.0-37.0); MEAN CORPUSCULAR VOLUME 80.8 fl (82.0-101.0); MEAN PLATELET VOLUME 11.2 fl (7.4-10.4); MONOCYTE # 0.7 10^3/ul (0.3-0.9); MONOCYTES % 5.7 % (0.0-11.0); NEUTROPHIL # 9.8 10^3/ul (1.6-7.5); NEUTROPHILS % 86.7 % (39.0-77.0); PLATELET COUNT 318 10^3/UL (140-415); RED BLOOD COUNT 4.22 10^6/ul (4.70-6.10); RED CELL DISTRIBUTION WIDTH 15.9 % (11.5-14.5)
[2019-06-18 05:52] LABS: WHITE BLOOD COUNT 11.3 10^3/ul (4.8-10.8)
[2019-06-18 06:22] LABS: ANION GAP 8 (5-13); BLOOD UREA NITROGEN 25 mg/dl (7-20); CALCIUM 8.7 mg/dl (8.4-10.2); CARBON DIOXIDE 26 mmol/L (21-31); CHLORIDE 104 mmol/L (97-110); CREATININE 0.74 mg/dl (0.61-1.24); Estimated GFR > 60 mL/min (>60); GLUCOSE 148 mg/dl (70-220); POTASSIUM 3.1 mmol/L (3.5-5.1); SODIUM 138 mmol/L (135-144)
[2019-06-18] MEDS: POTASSIUM CHLORIDE 100 ML IVPB ×3 (07:02→11:24)
[2019-06-18] MEDS: LEVETIRACETAM 1000 MG (PMX) 100 ML IVPB ×2 (09:11→20:37)
[2019-06-18] MEDS: METOPROLOL 50 MG TAB NGT ×2 (09:15→20:37)
[2019-06-18] MEDS: NIFEdipine (XL) 30 MG TAB PO ×2 (09:15→20:37)
[2019-06-18] MEDS: POLYETHYLENE GLYCOL 17 GM PACKET NGT (09:15)
[2019-06-18] MEDS: ARTIFICIAL TEARS 15 ML OPH BOTH EYES ×4 (09:15→20:35)
[2019-06-18] MEDS: hydrALAzine 20 MG INJ IV (18:19)
[2019-06-19] MEDS: PIPER-TAZO 3.375 GM IV (PMX) 100 ML IVPB ×2 (00:17→05:06)
[2019-06-19] MEDS: niCARdipine 50 MG in SOD CHLORIDE 0.9% 480 ML IV (00:33)
[2019-06-19] MEDS: hydrALAzine 20 MG INJ IV (04:59)
[2019-06-19] MEDS: LANSOPRAZOLE 30 MG CAP NGT (05:05)
[2019-06-19] MEDS: HYDROCHLOROTHIAZIDE 25 MG TAB NGT (05:06)
[2019-06-19 05:07] LABS: ADD MAN DIFF? NO
[2019-06-19 05:17] LABS: WHITE BLOOD COUNT 10.1 10^3/ul (4.8-10.8)
[2019-06-19 05:17] LABS: BASOPHILS % 0.2 % (0.0-2.0); EOSINOPHILS % 0.3 % (0.0-7.0); HEMATOCRIT 31.6 % (42.0-52.0); LYMPHOCYTES # 0.9 10^3/ul (0.8-2.9); LYMPHOCYTES % 9.1 % (15.0-51.0); MEAN CORPUSCULAR HEMOGLOBIN 25.5 pg (29.0-33.0); MEAN CORPUSCULAR HGB CONC 31.6 g/dl (32.0-37.0); MEAN CORPUSCULAR VOLUME 80.6 fl (82.0-101.0); MONOCYTE # 0.6 10^3/ul (0.3-0.9); MONOCYTES % 5.8 % (0.0-11.0); NEUTROPHIL # 8.5 10^3/ul (1.6-7.5); NEUTROPHILS % 84.1 % (39.0-77.0); PLATELET COUNT 309 10^3/UL (140-415); RED BLOOD COUNT 3.92 10^6/ul (4.70-6.10); RED CELL DISTRIBUTION WIDTH 15.8 % (11.5-14.5)
[2019-06-19 05:43] LABS: ANION GAP 6 (5-13); BLOOD UREA NITROGEN 26 mg/dl (7-20); CALCIUM 8.8 mg/dl (8.4-10.2); CARBON DIOXIDE 26 mmol/L (21-31); CHLORIDE 107 mmol/L (97-110); CREATININE 0.76 mg/dl (0.61-1.24); Estimated GFR > 60 mL/min (>60); GLUCOSE 136 mg/dl (70-220); POTASSIUM 3.6 mmol/L (3.5-5.1); SODIUM 139 mmol/L (135-144)
[2019-06-19] MEDS: LEVETIRACETAM 1000 MG (PMX) 100 ML IVPB (08:23)
[2019-06-19] MEDS: METOPROLOL 50 MG TAB NGT (08:23)
[2019-06-19] MEDS: NIFEdipine (XL) 30 MG TAB PO (08:23)
[2019-06-19] MEDS: POLYETHYLENE GLYCOL 17 GM PACKET NGT (08:24)
[2019-06-19] MEDS: ARTIFICIAL TEARS 15 ML OPH BOTH EYES (08:24)
[2019-06-19] MEDS ORDERED: ARTIFICIAL TEARS 15 ML OPH BOTH EYES (10:00)
[2019-06-19] MEDS ORDERED: DIMETHICONE STICK TOP (10:00)
[2019-06-19] MEDS ORDERED: morphine (DRIP) 100 MG/100 ML 100 ML IV (10:30)
[2019-06-19] MEDS: morphine (DRIP) 100 MG/100 ML 100 ML IV (11:23)
[2019-06-19] MEDS: LORAZEPAM (MDV) 100 MG in DEXTROSE 5% 50 ML IV (11:24)
== END 2019-06-19 13:41 | disposition expired | DRG 23 ==
LOC: ICU 23:55 → E/R 17:14 → SUR 19:27 → ICU 23:55 → SDS 19:26 → SUR 23:55 → ICU 23:55 → SUR 19:26 → SDS 19:27
PROVIDERS: Specialist
PROC: 00N00ZZ Release Brain, Open Approach (ICD-10-PCS; principal; 2019-06-08 19:19)
PROC: 009600Z Drainage of Cerebral Ventricle with Drainage Device, Open Approach (ICD-10-PCS; 2019-06-08 19:19)
PROC: 0BH17EZ Insertion of Endotracheal Airway into Trachea, Via Natural or Artificial Opening (ICD-10-PCS; 2019-06-08 19:19)
PROC: 5A1955Z Respiratory Ventilation, Greater than 96 Consecutive Hours (ICD-10-PCS; 2019-06-08 19:19)
DX: I61.4 Nontraumatic intracerebral hemorrhage in cerebellum (principal); G93.5 Compression of brain; J96.00 Acute respiratory failure, unspecified whether with hypoxia or hypercapnia; G93.6 Cerebral edema; I63.9 Cerebral infarction, unspecified; I16.1 Hypertensive emergency; G91.8 Other hydrocephalus; Z99.11 Dependence on respirator [ventilator] status; G93.40 Encephalopathy, unspecified; E87.0 Hyperosmolality and hypernatremia; R65.10 Systemic inflammatory response syndrome (SIRS) of non-infectious origin without acute organ dysfunction; R47.02 Dysphasia; Z95.1 Presence of aortocoronary bypass graft; Z79.82 Long term (current) use of aspirin; Z72.0 Tobacco use; I46.9 Cardiac arrest, cause unspecified; I10 Essential (primary) hypertension; R40.20 Unspecified coma; D64.9 Anemia, unspecified; D69.6 Thrombocytopenia, unspecified; Z66 Do not resuscitate; R56.9 Unspecified convulsions
CPT/HCPCS: 31500; 36415; 36600; 70450; 70496; 70498; 70551; 71045; 80048; 80053; 80061; 80202; 80307; 81001; 82550; 82553; 82803; 82962; 83036; 83735; 83880; 84100; 84484; 85025; 85576; 85610; 85730; 86850; 86900; 86901; 87040-91; 87070; 87081; 87086; 88304; 89220; 93005; 93306; 94002; 94003; 94770; 95819; 96374; 96375; 99291-25